=== PATIENT | female | born 1975 | race Caucasian/White ===

== ENCOUNTER 2018-06-20 07:25 | Outpatient (CLI) | payer BC ==
[2018-06-20 10:33] LABS: ALBUMIN 4.1 g/dL (3.2-5.5); ALBUMIN/GLOBULIN RATIO 1.2 (1.0-2.2); ALKALINE PHOSPHATASE 60 IU/L (42-121); ALT ALANINE AMINOTRANSFERASE 26 IU/L (10-60); AST ASPARTATE AMINOTRANSFERASE 25 IU/L (10-42); BILIRUBIN,TOTAL 0.7 mg/dL (0.2-1.0); BUN - BLOOD UREA NITROGEN 15 mg/dL (6-20); CARBON DIOXIDE - CO2 24 mmol/L (21-32); CHLORIDE 104 mmol/L (101-111); CHOLESTEROL 189 mg/dL; CREATININE 0.7 mg/dL (0.4-1.0); GFR - MDRD 92 (>89); GLUCOSE 88 mg/dL (70-100); HDL CHOLESTEROL 63 mg/dL; LDL CHOLESTEROL,CALCULATED 105 mg/dL; LDL/HDL RATIO 1.7 (<4.4); SODIUM 136 mmol/L (135-145); TOTAL PROTEIN 7.6 g/dL (6.7-8.2); VLDL CHOLESTEROL 21 mg/dL
[2018-06-20 10:50] LABS: BASOPHILS % (AUTO) 0.9 %; EOSINOPHILS # (AUTO) 0.3 10^3/uL (0.0-0.7); EOSINOPHILS % (AUTO) 5.3 %; LYMPHOCYTES # (AUTO) 1.7 10^3/uL (1.5-3.5); LYMPHOCYTES % (AUTO) 34.4 %; MEAN CORPUSCULAR HEMOGLOBIN 27.9 pg (27.0-31.0); MEAN CORPUSCULAR VOLUME 81.9 fL (81.0-99.0); MONOCYTES # (AUTO) 0.3 10^3/uL (0.0-1.0); MONOCYTES % (AUTO) 7.2 %; NEUTROPHILS # (AUTO) 2.5 10^3/uL (1.5-6.6); NEUTROPHILS % (AUTO) 52.2 %; PLT - PLATELET COUNT 304 10^3/uL (130-450); RED BLOOD COUNT 4.68 10^6/uL (4.20-5.40); RED CELL DISTRIBUTION WIDTH 13.3 % (12.0-15.0); WHITE BLOOD COUNT 4.8 x10^3/uL (4.8-10.8)
== END 2018-06-20 07:26 | disposition home or self-care (01) ==
LOC: LAB.F 07:25
PROVIDERS: ATTEND Internal Medicine
DX: Z00.8 Encounter for other general examination (principal); D68.51 Activated protein C resistance
CPT/HCPCS: 36415; 80053; 80061; 83721; 84443; 85025

== ENCOUNTER 2018-07-22 12:58 | Outpatient (CLI) | payer BC ==
--- NOTE | 2018-07-23 08:51 | Mammography Report ---
Reason: SCREENING MAMMO Procedure Date: 07/22/2018 Accession Number: [id number] / [id number] Procedure: JANEEN - Screening Mammo w/Martin CPT Code: FULL RESULT: EXAM: Screening Mammo w/Martin DATE: 07/22/2018 1:29 PM CLINICAL HISTORY: 43-year-old female for baseline screening mammogram. TECHNIQUE: Bilateral CC and MLO views were obtained. COMPARISON: None FINDINGS: The breasts demonstrate heterogeneously dense fibroglandular parenchyma bilaterally. No suspicious masses, clustered microcalcifications, or regions of architectural distortion are identified. IMPRESSION: Negative examination RECOMMENDATION: Routine annual screening unless otherwise clinically indicated. BIRADS CATEGORY 1: Negative STANDARD QUALIFYING STATEMENTS: 1. This examination was not reviewed with the aid of Computer-Aided Detection (CAD). 2. A negative or benign imaging report should not delay biopsy if clinically suspicious findings are present. Consider surgical consultation if warrented. More than 5% of cancers are not identified by imaging. 3. Dense breasts may obscure an underlying neoplasm. 4. This examination was reviewed with the aid of 3D breast imaging (tomosynthesis).
== END 2018-07-22 12:59 | disposition home or self-care (01) ==
LOC: DI 12:58
PROVIDERS: ATTEND Internal Medicine
DX: Z12.31 Encounter for screening mammogram for malignant neoplasm of breast (principal)
CPT/HCPCS: 77063; 77067

== ENCOUNTER 2020-05-15 22:43 | Emergency (ER) | payer BC ==
--- NOTE | 2020-05-15 23:00 | ED Physician Documentation ---
PD HPI CHEST PAIN - Stated complaint Stated Complaint: CP - Chief complaint Chief Complaint: Cardiac - History obtained from History obtained from: Patient - History of Present Illness Timing - onset: How many days ago (2-3) Timing - onset during: Light activity Timing - duration: Days (Onset of some intermittent left-sided chest pressure and pain randomly without association of exertion per se. Sometimes pleuritic. It is worse today. She had been on a prolonged car trip to [facility] and developed the symptoms on return trip.) Timing - details: Abrupt onset, Intermittant Quality: Tightness, Aching Location: Left chest Radiation: Back Improved by: Rest Worsened by: Inspiration (at times, but not consistent) Associated symptoms: Shortness of air (mild), Other (She was just on a prolonged road trip driving to [facility] and developed the symptoms on end of return trip.). No: Nausea, Feeling faint / dizzy, Cough Similar symptoms before: Has not had sx before Recently seen: Not recently seen Review of Systems Constitutional: denies: Fever, Chills Nose: denies: Rhinorrhea / runny nose, Congestion Throat: denies: Sore throat Cardiac: reports: Chest pain / pressure. denies: Palpitations, Pedal edema, Calf pain Respiratory: reports: Dyspnea. denies: Cough, Wheezing GI: denies: Abdominal Pain, Nausea, Vomiting, Diarrhea Skin: denies: Rash, Lesions Musculoskeletal: denies: Extremity swelling PD PAST MEDICAL HISTORY - Past Medical History Cardiovascular: None Respiratory: None Neuro: None Endocrine/Autoimmune: None Other Past Medical History: Factor V Leiden deficiency and is on aspirin daily - Past Surgical History Past Surgical History: No - Present Medications Home Medications: Ambulatory Orders Medication Instructions Recorded Confirmed Aspirin [Adult Aspirin Regimen] 81 mg PO DAILY 05/15/20 05/15/20 Rivaroxaban [Xarelto] 15 mg PO BID #8 tablet 05/16/20 - Allergies Allergies/Adverse Reactions: Allergies Allergy/AdvReac Type Severity Reaction Status Date / Time No Known Drug Allergies Allergy Verified 05/15/20 23:24 - Living Situation Living Situation: reports: With spouse/s.o. Living Arrangement: reports: At home - Social History Does the pt smoke?: No Does the pt have substance abuse?: No - Family History Family history: reports: Other (Factor V Leiden deficiency) - POLST POLST Status: Full Code PD ED PE NORMAL - Vitals Vital signs reviewed: Yes - General General: Alert and oriented X 3, No acute distress, Well developed/nourished - HEENT HEENT: Pharynx benign - Neck Neck: Supple, no meningeal sign, No adenopathy - Cardiac Cardiac: RRR, No murmur - Respiratory Respiratory: No respiratory distress, Clear bilaterally, Other (no chestwall tenderness) - Abdomen Abdomen: Soft, Non tender - Derm Derm: Normal color, Warm and dry, No rash - Extremities Extremities: No tenderness to palpate, Normal ROM s pain, No edema, No calf tenderness / cord - Neuro Neuro: Alert and oriented X 3, No motor deficit, Normal speech Results - Vitals Vitals: Vital Signs - 24 hr 05/15/20 05/15/20 05/15/20 22:51 22:59 23:43 Temperature 36.9 C Heart Rate 90 78 Respiratory 18 14 Rate Blood Pressure 170/110 H 133/83 H Blood Pressure 129/99 H [Left] Blood Pressure 133/83 H [Right] O2 Saturation 100 98 05/16/20 05/16/20 05/16/20 00:25 01:30 02:25 Temperature Heart Rate 84 73 78 Respiratory 14 14 16 Rate Blood Pressure 122/82 H 121/94 H 120/80 Blood Pressure [Left] Blood Pressure [Right] O2 Saturation 99 98 99 Oxygen O2 Source Room air - EKG (time done) 22:51 Rate: Rate (enter#) (86) Rhythm: NSR [place]: Normal Intervals: Normal SC QRS: Normal Ischemia: Normal ST segments, ST depression (minimal in lateral leads). No: ST elevation c/w ischemia, T wave inversion - Labs Labs: Laboratory Tests 05/15/20 05/15/20 05/15/20 23:10 23:10 23:10 WBC RBC Hgb Hct MCV MCH MCHC RDW Plt Count MPV Neut # (Auto) Lymph # (Auto) [place] # (Auto) Eos # (Auto) Baso # (Auto) Absolute Nucleated RBC Nucleated RBC % D-Dimer 329.3 H Sodium 135 Potassium 3.6 Chloride 103 Carbon Dioxide 23 Anion Gap 9.0 BUN 10 Creatinine 0.7 Estimated GFR (MDRD) 91 Glucose 94 Calcium 9.1 Total Bilirubin 0.9 AST 20 ALT 32 Alkaline Phosphatase 81 Troponin I High Sens B-Natriuretic Peptide 26 Total Protein 8.0 Albumin 4.3 Globulin 3.7 Albumin/Globulin Ratio 1.2 Lipase 50 05/15/20 05/15/20 23:10 23:22 WBC 7.4 RBC 4.84 Hgb 13.2 Hct 40.0 MCV 82.6 MCH 27.3 MCHC 33.0 RDW 13.0 Plt Count 335 MPV 9.2 Neut # (Auto) 4.0 Lymph # (Auto) 2.4 [place] # (Auto) 0.6 Eos # (Auto) 0.3 Baso # (Auto) 0.1 Absolute Nucleated RBC 0.00 Nucleated RBC % 0.0 D-Dimer Sodium Potassium Chloride Carbon Dioxide Anion Gap BUN Creatinine Estimated GFR (MDRD) Glucose Calcium Total Bilirubin AST ALT Alkaline Phosphatase Troponin I High Sens < 2.3 L B-Natriuretic Peptide Total Protein Albumin Globulin Albumin/Globulin Ratio Lipase - Rads (name of study) chest xray Radiology: Prelim report reviewed (no acute process), See rad report PD MEDICAL DECISION MAKING - ED course Complexity details: reviewed results (Her chest x-ray and most labs are normal with however an elevated d-dimer. Given her risk factors, PE needs to be excluded. Unfortunately our CT scanner is broken currently and will not be fixed until tomorrow. Discussed it with the patient and we started with ultrasound of the legs. ), re-evaluated patient, considered differential (Will evaluate for typical chest pain concerns with chest x-ray EKG troponin and BNP. However she had been on a car trip and has a factor V Leiden deficiency so PE is of concern as well and will check a d-dimer.), d/w patient ED course: D-dimer is elevated. Our CT scanner is broken currently. Ultrasound of the legs is without any DVT. Discussed options with the patient and shared decision was to start anticoagulant and come back for a CT of the chest on Sunday which is when the CT scanner should be fixed. Alternatives were to transfer to another facility for CT chest tonight. Given her good clinical condition, even a positive test at this point would still be treated with anticoagulants outpatient so this seemed a reasonable alternative and precludes transfer and further testing in the middle the night. The patient had discussed it with her prior to a decision making. Departure - Departure Disposition: 01 Home, Self Care Clinical Impression: Acute chest pain, Elevated d-dimer Condition: Stable Record reviewed to determine appropriate education?: Yes Follow-Up: LINCOLN PRINCE MD [Primary Care Provider] - Prescriptions: Rivaroxaban [Xarelto] 15 mg PO BID #8 tablet Comments: Take the Xarelto blood thinner medicine twice daily until you are able to get more definitive test to exclude blood clots in your lungs. Return to the ER presumably Sunday for a CT of the chest. You can call ahead to the ER just to confirm our CT is operational at that point. Otherwise consider Tylenol every 4-6 hours if needed for pains. Avoid aspirin in conjunction with the blood thinner. Discharge Date/Time: 05/16/20 02:25
[2020-05-15] MEDS ORDERED: KETOROLAC 15 MG/ML VIAL IVP STA (23:22)
[2020-05-15 23:31] LABS: BASOPHILS # (AUTO) 0.1 10^3/uL (0.0-0.1); BASOPHILS % (AUTO) 0.7 %; EOSINOPHILS # (AUTO) 0.3 10^3/uL (0.0-0.7); HGB - HEMOGLOBIN 13.2 g/dL (12.0-16.0); LYMPHOCYTES # (AUTO) 2.4 10^3/uL (1.5-3.5); LYMPHOCYTES % (AUTO) 32.9 %; MEAN CORPUSCULAR HEMOGLOBIN 27.3 pg (27.0-31.0); MEAN CORPUSCULAR VOLUME 82.6 fL (81.0-99.0); MEAN PLATELET VOLUME 9.2 fL (7.9-10.8); MONOCYTES # (AUTO) 0.6 10^3/uL (0.0-1.0); MONOCYTES % (AUTO) 8.1 %; NEUTROPHILS % (AUTO) 53.9 %; PLT - PLATELET COUNT 335 10^3/uL (130-450); RED BLOOD COUNT 4.84 10^6/uL (4.20-5.40); WHITE BLOOD COUNT 7.4 x10^3/uL (4.8-10.8)
[2020-05-15 23:44] LABS: ALBUMIN 4.3 g/dL (3.2-5.5); ALBUMIN/GLOBULIN RATIO 1.2 (1.0-2.2); BILIRUBIN,TOTAL 0.9 mg/dL (0.2-1.0); CALCIUM 9.1 mg/dL (8.5-10.3); CREATININE 0.7 mg/dL (0.4-1.0)
[2020-05-16] MEDS ORDERED: RIVAROXABAN 15 MG TABLET PO STA (02:07)
[2020-05-16 02:26] VITALS: BP 120/80
--- NOTE | 2020-05-16 08:28 | XRAY Report ---
PROCEDURE: Chest 1 View X-Ray INDICATIONS: Chest Pain left TECHNIQUE: One view of the chest was acquired. COMPARISON: None FINDINGS: Surgical changes and devices: None. Lungs and pleura: No pleural effusions or pneumothorax. Lungs are clear. Mediastinum: Mediastinal contours appear normal. Heart size is normal. Bones and chest wall: No suspicious bony lesions. Overlying soft tissues appear unremarkable. IMPRESSION: No acute process. Concordant with preliminary. Reviewed by: Ellen Rangel MD on 05/16/2020 8:27 AM PDT Approved by: Ellen Rangel MD on 05/16/2020 8:27 AM PDT Station ID: [id number]
--- NOTE | 2020-05-16 08:37 | Ultrasound Report ---
PROCEDURE: Duplex Ext Veins Bilateral INDICATIONS: EVELIN MCBRIDE TECHNIQUE: Real-time imaging, as well as color and pulse Doppler interrogation, were performed of the deep veins of both legs from the inguinal ligament to the popliteal fossa. COMPARISON: None FINDINGS: The deep veins are normally compressible, and free of intraluminal thrombus. Color and pu lse Doppler demonstrate normal phasic intravascular flow. There is normal augmentation response to d istal compression maneuver. IMPRESSION: No evidence of bilateral lower extremity DVT. Concordant with preliminary. Reviewed by: Ellen Rangel MD on 05/16/2020 8:35 AM PDT Approved by: Ellen Rangel MD on 05/16/2020 8:35 AM PDT Station ID: [id number]
== END 2020-05-16 02:25 | disposition home or self-care (01) ==
LOC: ED 22:43
DX: R07.9 Chest pain, unspecified (principal); R79.1 Abnormal coagulation profile; D68.51 Activated protein C resistance
CPT/HCPCS: 36415; 71045; 80053; 83690; 83880; 84484; 85025; 85379; 93005; 93970; 96374; 99284; A9270